=== PATIENT | female | born 1945 | race African-American/Black ===

== ENCOUNTER 2018-08-14 19:25 | Emergency (ER) | payer BC ==
[~2018-08-14] VITALS: Ht 162.6 cm; Wt 60.0 kg
[2018-08-14] MEDS ORDERED: KETOROLAC 30MG/ML VIAL IV STA (20:05)
[2018-08-14] MEDS ORDERED: MORPHINE SULFATE 4 MG/ML CPJ (NOT FOR IM USE) IV STA (20:05)
[2018-08-14] MEDS ORDERED: KETAMINE HCL 50 MG/ML 10ML IV STA (20:54)
[2018-08-14] MEDS ORDERED: PROPOFOL 200MG/20ML VIAL IV ONE (21:00)
[2018-08-14 23:24] VITALS: BP 146/58
== END 2018-08-14 23:25 | disposition home or self-care (01) ==
LOC: ER 19:25
DX: S82.852A Displaced trimalleolar fracture of left lower leg, initial encounter for closed fracture (principal); E78.00 Pure hypercholesterolemia, unspecified; F12.10 Cannabis abuse, uncomplicated; Z87.891 Personal history of nicotine dependence; W18.39XA Other fall on same level, initial encounter; Y93.89 Activity, other specified; Y92.512 Supermarket, store or market as the place of occurrence of the external cause; Y99.8 Other external cause status
CPT/HCPCS: 27818; 73600; 73610; 96374; 96375; 99152; 99285; J1885; J2270; J2704; J3490

== ENCOUNTER 2024-07-25 22:49 | Emergency (ER) | payer BC ==
[~2024-07-25] VITALS: Ht 162.6 cm; Wt 62.0 kg
[2024-07-25 22:54] VITALS: O2SAT 100
[2024-07-25 23:12] VITALS: TEMP 36.9
[2024-07-26 00:03] LABS: BASOPHILS % 0.8 % (0.0-2.0); EOSINOPHILS % 0.9 % (0.0-5.0); HEMOGLOBIN. 12.6 g/dL (12.0-16.0); MEAN CORPUSCULAR HEMOGLOBIN 31.2 pg (28.0-32.0); MEAN CORPUSCULAR HGB CONC 34.2 g/dL (31.0-37.0); MEAN CORPUSCULAR VOLUME 91.2 fL (81.0-99.0); MEAN PLATELET VOLUME 8.5 fl (7.4-10.4); MONOCYTES % 8.1 % (2.0-8.0); NEUTROPHILS % 70.2 % (40.0-76.0); PLATELET 258 x1000/uL (130-400); RED BLOOD CELL COUNT 4.05 mill/uL (4.2-5.4); RED CELL DISTRIBUTION WIDTH 13.2 % (11.6-14.6); WHITE BLOOD COUNT 6.4 x1000/uL (4.5-11.0)
[2024-07-26 00:12] LABS: CARBON DIOXIDE 23 mEq/L (21-32); CHLORIDE 108 mEq/L (98-107); POTASSIUM 3.6 mEq/L (3.5-5.1); SODIUM 143 mEq/L (136-145)
[2024-07-26] MEDS: KETOROLAC 30MG/ML VIAL IV STA (00:12)
[2024-07-26 00:13] LABS: CALCIUM 9.8 mg/dL (8.7-10.4)
[2024-07-26 00:14] VITALS: TEMP 98.5
[2024-07-26] MEDS: ACETAMINOPHEN 325MG TABLET PO STA (00:14)
[2024-07-26] MEDS: ONDANSETRON HCL 4MG/2ML INJ IV ONE (00:14)
[2024-07-26] MEDS: SODIUM CHLORIDE 0.9% 1,000 ML IV ONE (00:14)
[2024-07-26 00:18] LABS: CREATININE 0.7 mg/dL (0.6-1.0); GLUCOSE 112 mg/dL (70-105); UREA NITROGEN BLOOD 7 mg/dL (9-23)
[2024-07-26 00:19] LABS: TROPONIN I HIGH SENSITIVITY 8 ng/L (3.0-34)
[2024-07-26 00:20] LABS: ALANINE AMINOTRANSFERASE 22 IU/L (10-49); ALBUMIN 4.6 g/dL (3.2-4.8); ASPARTATE AMINOTRANSFERASE 24 IU/L (<34); BILIRUBIN DIRECT 0.2 mg/dL (<=3.0); BILIRUBIN TOTAL 0.8 mg/dL (0.1-1.0); PROTEIN TOTAL 7.1 g/dL (6.0-8.3)
[2024-07-26 02:34] VITALS: BP 167/61; PULSE 64; RESP 21; O2SAT 99
== END 2024-07-26 02:55 | disposition home or self-care (01) ==
LOC: ER 22:49
DX: I10 Essential (primary) hypertension (principal); R51.9 Headache, unspecified; E78.00 Pure hypercholesterolemia, unspecified; F10.90 Alcohol use, unspecified, uncomplicated; Y90.9 Presence of alcohol in blood, level not specified
CPT/HCPCS: 99285; 71045; 80076; 80048; 85025; 84484; 36415; 93005; 96374; 70450; 96361; 96375; J7030; J1885; J2405; A4606